=== PATIENT | female | born 1990 | race Hispanic/Latino ===

== ENCOUNTER 2018-11-19 15:19 | Emergency (ER) | payer OTHER ==
[~2018-11-19] VITALS: Ht 157.5 cm; Wt 68.0 kg
--- OUTSIDE RECORDS SUMMARY | 2018-11-19 15:21 | XMS REPORT ---
Author Author [facility] Address Unknown Phone Unavailable Care Team Providers Care Corporate Legal Intern Name Role Phone NATHALIA MEEK Unavailable Unavailable Problems This patient has no known problems. Allergies, Adverse Reactions, Alerts This patient has no known allergies or adverse reactions. Medications This patient has no known medications. Results Test Description Test Time Test Comments Text Results Atomic Results Result Comments COMPREHENSIVE METABOLIC PANEL 2017-01-03 21:15:00 TOTAL PROTEIN (BEAKER) (test rlco=416) 8.1 gm/dL 6.0-8.5 ALBUMIN (BEAKER) (test lypj=1788) 4.5 g/dL 3.5-5.0 ALKALINE PHOSPHATASE (BEAKER) (test wvmu=294) 84 U/L 30-115 BILIRUBIN TOTAL (BEAKER) (test siqh=555) 0.2 mg/dL 0.1-1.2 SODIUM (BEAKER) (test ukck=382) 142 meq/L 135-148 POTASSIUM (BEAKER) (test dvsj=306) 4.1 meq/L 3.6-5.5 CHLORIDE (BEAKER) (test qzum=878) 102 meq/L 98-106 CO2 (BEAKER) (test ttki=759) 25 meq/L 24-32 BLOOD UREA NITROGEN (BEAKER) (test mwuw=924) 14 mg/dL 10-26 CREATININE (BEAKER) (test ardd=133) 0.58 mg/dL 0.50-1.20 GLUCOSE RANDOM (BEAKER) (test khoe=217) 91 mg/dL 70-110 CALCIUM (BEAKER) (test rkam=866) 8.8 mg/dL 8.5-10.5 AST (SGOT) (BEAKER) (test jnby=209) 23 U/L 5-40 ALT (SGPT) (BEAKER) (test zehg=249) 17 U/L 5-50 EGFR (BEAKER) (test bhwq=8810) 128 mL/min/1.73 sq m ESTIMATED GFR IS NOT ACCURATE CREATININE CLEARANCE IN PREDICTING GLOMERULAR FILTRATION RATE. ESTIMATED GFR IS NOT APPLICABLE FOR DIALYSIS PATIENTS. [id number] 21:15:00* Test Item Value Reference Range Comments LIPASE (BEAKER) (test gmlk=393) 168 U/L 40-240 CBC W/PLT COUNT & AUTO [id number] 21:08:00* Test Item Value Reference Range Comments WHITE BLOOD CELL COUNT (BEAKER) (test iiyc=340) 12.8 10e3/ L 4.0-10.0 RED BLOOD CELL COUNT (BEAKER) (test ltig=061) 4.68 10e6/ L 4.00-5.00 HEMOGLOBIN (BEAKER) (test rkjc=462) 14.0 g/dL 12.0-15.0 HEMATOCRIT (BEAKER) (test pege=192) 41.9 % 36.0-45.0 MEAN CORPUSCULAR VOLUME (BEAKER) (test dfmp=299) 89.6 fL 82.0-99.0 MEAN CORPUSCULAR HEMOGLOBIN (BEAKER) (test umbb=604) 29.9 pg 27.0-33.0 MEAN CORPUSCULAR HEMOGLOBIN CONC (BEAKER) (test fhql=931) 33.3 g/dL 32.0-36.0 RED CELL DISTRIBUTION WIDTH (BEAKER) (test djhd=907) 11.9 % 10.3-14.2 PLATELET COUNT (BEAKER) (test jwkx=382) 395 10e3/ L 150-430 MEAN PLATELET VOLUME (BEAKER) (test zsrf=728) 6.9 fL 6.5-10.5 NEUTROPHILS RELATIVE PERCENT (BEAKER) (test stud=733) 58 % LYMPHOCYTES RELATIVE PERCENT (BEAKER) (test airh=255) 31 % MONOCYTES RELATIVE PERCENT (BEAKER) (test voqk=191) 8 % EOSINOPHILS RELATIVE PERCENT (BEAKER) (test pdpt=895) 2 % BASOPHILS RELATIVE PERCENT (BEAKER) (test eqrf=926) 1 % NEUTROPHILS ABSOLUTE COUNT (BEAKER) (test wkfs=559) 7.36 10e3/ L 1.80-8.00 LYMPHOCYTES ABSOLUTE COUNT (BEAKER) (test nxsn=035) 3.99 10e3/ L 1.48-4.50 MONOCYTES ABSOLUTE COUNT (BEAKER) (test dvei=958) 1.06 10e3/ L 0.00-1.30 EOSINOPHILS ABSOLUTE COUNT (BEAKER) (test maay=036) 0.23 10e3/ L 0.00-0.50 BASOPHILS ABSOLUTE COUNT (BEAKER) (test mqnt=356) 0.11 10e3/ L 0.00-0.20 URINALYSIS W/ [id number] 20:52:00* Test Item Value Reference Range Comments COLOR (BEAKER) (test anwn=988) Yellow CLARITY (BEAKER) (test wajm=363) Clear SPECIFIC GRAVITY UA (BEAKER) (test bitg=100) 1.025 1.001-1.035 PH UA (BEAKER) (test tzud=837) 5.5 5.0-8.0 PROTEIN UA (BEAKER) (test ywov=743) Negative Negative GLUCOSE UA (BEAKER) (test npnz=748) Negative Negative KETONES UA (BEAKER) (test ohoa=985) Negative Negative BILIRUBIN UA (BEAKER) (test hnlp=787) Negative Negative BLOOD UA (BEAKER) (test pdll=643) Moderate Negative NITRITE UA (BEAKER) (test evvq=171) Negative Negative LEUKOCYTE ESTERASE UA (BEAKER) (test smsi=113) Negative Negative UROBILINOGEN UA (BEAKER) (test paou=919) 0.2 mg/dL 0.2-1.0 BACTERIA (BEAKER) (test xhor=588) Many MUCUS (BEAKER) (test wkti=6582) Moderate RBC UA-MANUAL (BEAKER) (test grfl=8341) 10-20 /HPF WBC UA-MANUAL (BEAKER) (test mprt=4666) <5 /HPF SQUAMOUS EPITHELIAL MANUAL (BEAKER) (test gdam=2473) 5-10 /HPF SOURCE(BEAKER) (test glqx=8930) SCREEN, [id number] 20:49:00* Test Item Value Reference Range Comments TEST URINE (BEAKER) (test hxnm=884) Negative
--- OUTSIDE RECORDS SUMMARY | 2018-11-19 15:21 | XMS REPORT | Clinical Summary ---
Author Author [facility] Address Unknown Phone Unavailable Care Team Providers Care Calibration Laboratory Technician Name Role Phone Sharpless PCP Allergies Comments Active Allergy Reactions Severity Noted Date DIARRHEA [place] Other (See 05/29/2016 Comments) Medications End Date Status Medication Sig Dispensed Refills Start Date Active fexofenadine-pseudoephedr 1 tablet. 0 ine (JOVANA-D 24 HOUR) 6 180-240 mg per 24 hr tablet Active topiramate (TOPAMAX) 50 TAKE 1 TABLET 0 MG tablet BY MOUTH 2 7 TIMES DAILY. 01/03/2018 naproxen (EC NAPROSYN) Take 1 tablet 20 tablet 0 500 MG EC tablet (500 mg 7 total) by mouth 2 (two) times daily with breakfast and dinner. Active Problems Problem Noted Date Migraine 09/26/2015 Right sided weakness 09/25/2015 Headache 09/25/2015 Family History Medical History Relation Name Comments Unremarkable Father Unremarkable Mother Relation Name Status Comments Father Mother Social History Date Tobacco Use Types Packs/Day Years Used Never Smoker Alcohol Use Drinks/Week oz/Week Comments No Sex Assigned at Date Recorded Not on file Industry Job Start Date Occupation Not on file Not on file Not on file Travel End Travel History Travel Start No recent travel history available. Last Filed Vital Signs Not on file Plan of Treatment Not on file Results Not on fileafter 11/18/2017 Insurance Payer Benefit Subscriber ID Type Phone Address Plan / Group CIG[employer] - MGD CARE CIGNA xxxxxxxxxxx HMO/POS HMO/POS/OP EN ACCESS Advance Directives For more information, please contact: [facility] [address] [place] [address] Date Inactivated Comments Code Status Date Activated 09/27/2015 4:35 PM Full Code 09/26/2015 8:05 PM This code status was determined by: Patient
[2018-11-19] MEDS ORDERED: FAMOTIDINE 20 MG/2 ML VIAL IV ONE (16:18)
[2018-11-19] MEDS ORDERED: SODIUM CHLORIDE 0.9% 1000ML 1,000 ML IV SCH (16:30)
[2018-11-19] MEDS ORDERED: DONNATAL/LIDOCAINE/MAALOX 30 ML SUSP PO ONE (16:30)
[2018-11-19 18:58] VITALS: BP 137/69
== END 2018-11-19 19:01 | disposition home or self-care (01) ==
LOC: FSED 15:19
DX: R10.13 Epigastric pain (principal); R11.2 Nausea with vomiting, unspecified; K29.00 Acute gastritis without bleeding; K21.9 Gastro-esophageal reflux disease without esophagitis
CPT/HCPCS: 80048; 80076; 81003; 81025; 85025; 99284

== ENCOUNTER 2018-12-14 19:47 | Emergency (ER) | payer OTHER ==
[~2018-12-14] VITALS: Ht 157.5 cm; Wt 68.0 kg
--- OUTSIDE RECORDS SUMMARY | 2018-12-14 19:49 | XMS REPORT | Clinical Summary ---
Author Author [facility] Address Unknown Phone Unavailable Care Team Providers Care Binder And Box Builder Name Role Phone Sharpless PCP Allergies Comments Active Allergy Reactions Severity Noted Date DIARRHEA [place] Other (See 05/29/2016 Comments) Medications End Date [...] Not on file Results Not on fileafter 12/13/2017 Insurance Payer Benefit Subscriber ID Type Phone Address Plan / Group C[employer] - [place]GD CARE CIGNA xxxxxxxxxxx HMO/POS HMO/POS/OP EN ACCESS Advance Directives For more information, please contact: [facility] [address] [place] [address] Date Inactivated Comments Code Status Date Activated 09/27/2015 4:35 PM Full Code 09/26/2015 8:05 PM This code status was determined by: Patient
[2018-12-14] MEDS ORDERED: MORPHINE SULFATE 5 MG/ML VIAL IV ONE ×2 (20:45→21:45)
[2018-12-14] MEDS ORDERED: ONDANSETRON HCL INJ 2MG/ML 2ML 2 MG/ML VIAL IV STA (20:45)
[2018-12-14 21:37] VITALS: BP 110/71
== END 2018-12-14 21:48 | disposition home or self-care (01) ==
LOC: FSED 19:47
DX: G43.019 Migraine without aura, intractable, without status migrainosus (principal); R11.0 Nausea
CPT/HCPCS: 81025; 99283; J2270; J2405

== ENCOUNTER 2019-02-25 06:09 | Emergency (ER) | payer OTHER ==
[~2019-02-25] VITALS: Ht 157.5 cm; Wt 68.0 kg
--- OUTSIDE RECORDS SUMMARY | 2019-02-25 06:11 | XMS REPORT | Clinical Summary ---
Author Author [facility] Address Unknown Phone Unavailable Care Team Providers Care Toxicology Teacher Name Role Phone Sharpless PCP Allergies Comments Active Allergy Reactions Severity Noted Date DIARRHEA [place] Other (See 05/29/2016 Comments) Medications End Date Status Medication Sig Dispensed Refills Start Date Active fexofenadine-pseudoephedr 1 tablet. 0 ine (JOVANA-D 24 HOUR) 6 180-240 mg per 24 hr tablet Active topiramate (TOPAMAX) 50 TAKE 1 TABLET 0 MG tablet BY MOUTH 2 7 TIMES DAILY. Active Problems Problem Noted Date Migraine 09/26/2015 [...] Not on file Results Not on fileafter 02/24/2018 Insurance Payer Benefit Subscriber ID Type Phone Address Plan / Group C[employer] - [place]GD CARE CIGNA xxxxxxxxxxx HMO/POS HMO/POS/OP EN ACCESS Advance Directives For more information, please contact: [place] [id number] [facility] [place] [address] Date Inactivated Comments Code Status Date Activated 09/27/2015 4:35 PM Full Code 09/26/2015 8:05 PM This code status was determined by: Patient
[2019-02-25] MEDS ORDERED: SODIUM CHLORIDE 0.9% 50ML 50 ML IV ONE (08:45)
[2019-02-25] MEDS ORDERED: TETRACAINE HCL 0.5% OPTH SOLN 4 ML BTL OP ONE (08:45)
== END 2019-02-25 07:00 | disposition home or self-care (01) ==
LOC: FSED 06:09
DX: T15.11XA Foreign body in conjunctival sac, right eye, initial encounter (principal)
CPT/HCPCS: 99284

== ENCOUNTER 2020-07-07 16:44 | Emergency (ER) | payer SELFPAY ==
[~2020-07-07] VITALS: Ht 160 cm; Wt 77.1 kg
[2020-07-07] MEDS ORDERED: ONDANSETRON HCL INJ 2MG/ML 2ML 2 MG/ML VIAL IV STA (17:08)
[2020-07-07] MEDS ORDERED: ONDANSETRON HCL INJ 2MG/ML 2ML 2 MG/ML VIAL ONE (17:30)
--- NOTE | 2020-07-07 17:43 | Emergency Department Note ---
History of Present Illnes History of Present Illness Chief Complaint: General Medicine Complaints History of Present Illness This is a 30 year old female Chief Complaint Comment HEADACHE FOR 6 DAYS, ALSO HAS NAUSEA AND VOMITING FOR 3 DAYS. NAD NOTED. PT AMBULATORY TO TRIAGE, URINE OBTAINED . Historian: Patient Arrival Mode: Car Onset (how long ago): day(s) (2) Location: vomiting Quality: dull headache Radiation: Denies non-radiation, Denies back, Denies neck, Denies extremity, Denies abdomen, Denies periumbilical, Denies flank, Denies proximal, Denies distal, Denies other Severity: moderate Onset quality: gradual Duration (how long): day(s) (2) Timing of current episode: intermittent Progression: waxing and waning Chronicity: new Context: Denies recent illness, Denies recent surgery, Denies recent immobilization, Denies recent travel, Denies trauma/injury, Denies new medications, Denies hx of DVT/PE, Denies non-compliance w/ medications, Denies other Relieving factors: none Exacerbating factors: none Associated symptoms: Reports denies other symptoms Treatments prior to arrival: none Past Medical/Family History Physician Review I have reviewed the patient's past medical and family history. Any updates have been documented here. Past Medical History Recent Fever: No Clinical Suspicion of Infectio: No New/Unexplained Change in Ment: No Past Medical History: Migraines, GERD Past Surgical History: None Social History Smoking Cessation: Current every day smoker Counseling Performed: No Alcohol Use: None Any Illegal Drug Use: No Other Last Tetanus: UTD Any Pre-Existing Lines (PICC,: No Review of Systems Review of Systems Constitutional: Reports no symptoms EENTM: Reports no symptoms Cardiovascular: Reports no symptoms Respiratory: Reports no symptoms Gastrointestinal: Reports no symptoms Genitourinary: Reports no symptoms Musculoskeletal: Reports no symptoms Integumentary: Reports no symptoms Neurological: Reports no symptoms Psychological: Reports no symptoms Endocrine: Reports no symptoms Hematological/Lymphatic: Reports no symptoms Physical Exam Related Data Allergies: Coded Allergies: No Known Allergies (Unverified , 03/01/14) Triage Vital Signs Vital Signs Date Time Temp Pulse Resp B/P (MAP) Pulse Ox O2 Delivery O2 Flow Rate FiO2 07/07/20 17:07 98.3 92 18 120/70 98 Vital signs reviewed: Yes Physical Exam CONSTITUTIONAL Constitutional: Present well-developed, Present well-nourished HENT HENT: Present normocephalic, Present atraumatic, Present oropharynx clear/moist, Present nose normal HENT L/R: Present left ext ear normal, Present right ext ear normal EYES Eyes: Reports PERRL, Reports conjunctivae normal NECK Neck: Present ROM normal PULMONARY Pulmonary: Present effort normal, Present breath sounds normal CARDIOVASCULAR Cardiovascular: Present regular rhythm, Present heart sounds normal, Present capillary refill normal, Present normal rate GASTROINTESTINAL Abdominal: Present soft, Present nontender, Present bowel sounds normal GENITOURINARY Genitourinary: Present exam deferred SKIN Skin: Present warm, Present dry MUSCULOSKELETAL Musculoskeletal: Present ROM normal NEUROLOGICAL Neurological: Present alert, Present oriented x 3, Present no gross motor or sensory deficits PSYCHOLOGICAL Psychological: Present mood/affect normal, Present judgement normal Results Laboratory Lab results reviewed: Yes Procedures 12 Lead ECG Interpretation ECG Interpretation : ECG: ECG 1 Health Education Director: Interpreted by ED physician Date: Jul 07, 2020 Time: 16:58 Rhythm: sinus rhythm Rate: normal BPM: 91 QRS axis: normal ST segments normal: Yes T waves normal: Yes Assessment & Plan Medical Decision Making MDM migrain,,,gastritis Reassessment Reassessment better Assessment & Plan Final Impression: (1) Headache (2) Vomiting (3) Migraine Last Vital Signs Date Time Temp Pulse Resp B/P (MAP) Pulse Ox O2 Delivery O2 Flow Rate FiO2 07/07/20 17:07 98.3 92 18 120/70 98 Home Meds No Active Prescriptions or Reported Meds Medications in the ED Ondansetron HCl 4 mg NOW STAT IV Last administered on 07/07/20at 17:25; Admin Dose 4 MG; Start 07/07/20 at 17:08; Stop 07/07/20 at 17:26; Status DC Ondansetron HCl 4 mg STK-MED ONCE .ROUTE ; Start 07/07/20 at 17:30; Stop 07/07/20 at 17:26; Status DC TEE MAR MD Jul 07, 2020 17:43
--- OUTSIDE RECORDS SUMMARY | 2020-07-07 17:44 | XMS REPORT | Continuity of Care Document ---
Author Author [facility] t Organization [facility] t Address [address] [place] [address] Phone Unavailable Care Team Providers Care Finished Cloth Examiner Name Role Phone NO, PCP PCP Unavailable NATHALIA MEEK Attangel Unavailable Payers Payer Name Policy Type Policy Number Effective Date Expiration Date Jayda Vivarsey Care [id number] [facility] [id number] [facility] Ppo [id number] [facility] Problems Condition Name Condition Details Condition Category Status Onset Date Resolution Date Last Treatment Date Treating Clinician Comments Source Migraine Migraine Disease Active 2015-09-26 00:00:00 [facility] Right sided weakness Right sided weakness Disease Active 00:00:00 [facility] Headache Headache Disease Active 2015-09-25 00:00:00 [facility] Allergies, Adverse Reactions, Alerts Allergy Name Allergy Type Status Severity Reaction(s) Onset Date Inacti ve Date Treating Clinician Comments Source [place] Propensity to adverse reactions Active Othe r (See Comments) 2016-05-29 00:00:00 DIARRHEA [facility] Family History Family Member Diagnosis Comments Start Date Stop Date Source Natural father Unremarkable [facility] Natural mother Unremarkable [facility] Social History Social Habit Start Date Stop Date Quantity Comments Source Sex Assigned At [facility] Smoking Status Start Date Stop Date Source Never smoker [facility] Medications Ordered Medication Name Filled Medication Name Start Date Stop Da te Current Medication? Ordering Clinician Indication Dosage Frequency Signature (SIG) Comments Components Source topiramate (TOPAMAX) 50 MG tablet 2016-11-25 00:00:00 Yes TAKE 1 TABLET BY MOUTH 2 TIMES DAILY. [facility] fexofenadine-pseudoephedrine (JOVANA-D 24 HOUR) 180-240 mg per 24 hr tablet 2016-10-06 00:00:00 Yes 1{tbl} 1 tablet. [facility] Procedures This patient has no known procedures. Encounters Start Date/Time End Date/Time [facility] Source 2019-02-25 06:09:00 2019-02-25 07:00:00 Departed Emergency Room [facility] [id number] [facility] 2018-12-14 19:47:00 2018-12-14 21:48:00 Departed Emergency Room [facility] [id number] [facility] 2018-11-19 15:19:00 2018-11-19 19:01:00 Departed Emergency Room [facility] [id number] [facility] Results Test Description Test Time Test Comments Results Result Comments Source COMPREHENSIVE METABOLIC PANEL 2017-01-03 21:15:00 Test Item TOTAL PROTEIN (BEAKER) (test code = 770) 8.1 gm/dL 6.0-8.5 ALBUMIN (BEAKER) (test code = 1145) 4.5 g/dL 3.5-5.0 ALKALINE PHOSPHATASE (BEAKER) (test code = 346) 84 U/L 30-115 BILIRUBIN TOTAL (BEAKER) (test code = 377) 0.2 mg/dL 0.1-1.2 SODIUM (BEAKER) (test code = 381) 142 meq/L 135-148 POTASSIUM (BEAKER) (test code = 379) 4.1 meq/L 3.6-5.5 CHLORIDE (BEAKER) (test code = 382) 102 meq/L 98-106 CO2 (BEAKER) (test code = 355) 25 meq/L 24-32 BLOOD UREA NITROGEN (BEAKER) (test code = 354) 14 mg/dL 10-26 CREATININE (BEAKER) (test code = 358) 0.58 mg/dL 0.50-1.20 GLUCOSE RANDOM (BEAKER) (test code = 652) 91 mg/dL 70-110 CALCIUM (BEAKER) (test code = 697) 8.8 mg/dL 8.5-10.5 AST (SGOT) (BEAKER) (test code = 353) 23 U/L 5-40 ALT (SGPT) (BEAKER) (test code = 347) 17 U/L 5-50 EGFR (BEAKER) (test code = 1092) 128 mL/min/1.73 sq m ESTIMATED GFR IS NOT ACCURATE CREATININE CLEARANCE IN PREDICTING GLOMERULAR FILTRATION RATE. ESTIMATED GFR IS NOT APPLICABLE FOR DIALYSIS PATIENTS. [id number] 21:15:00* Test Item Value Reference Range Interpretation Comments LIPASE (BEAKER) (test code = 749) 168 U/L 40-240 CBC W/PLT COUNT & AUTO [id number] 21:08:00* Test Item Value Reference Range Interpretation Comments WHITE BLOOD CELL COUNT (BEAKER) (test code = 775) 12.8 10e3/ L 4.0- 10.0 H RED BLOOD CELL COUNT (BEAKER) (test code = 761) 4.68 10e6/ L 4.00-5 .00 HEMOGLOBIN (BEAKER) (test code = 410) 14.0 g/dL 12.0-15.0 HEMATOCRIT (BEAKER) (test code = 411) 41.9 % 36.0-45.0 MEAN CORPUSCULAR VOLUME (BEAKER) (test code = 753) 89.6 fL 82. 0-99.0 MEAN CORPUSCULAR HEMOGLOBIN (BEAKER) (test code = 751) 29.9 pg 27.0-33.0 MEAN CORPUSCULAR HEMOGLOBIN CONC (BEAKER) (test code = 752) 33.3 g/dL 32.0-36.0 RED CELL DISTRIBUTION WIDTH (BEAKER) (test code = 412) 11.9 % 10.3-14.2 PLATELET COUNT (BEAKER) (test code = 756) 395 10e3/ L 150-430 MEAN PLATELET VOLUME (BEAKER) (test code = 754) 6.9 fL 6.5-10 .5 NEUTROPHILS RELATIVE PERCENT (BEAKER) (test code = 429) 58 % LYMPHOCYTES RELATIVE PERCENT (BEAKER) (test code = 430) 31 % MONOCYTES RELATIVE PERCENT (BEAKER) (test code = 431) 8 % EOSINOPHILS RELATIVE PERCENT (BEAKER) (test code = 432) 2 % BASOPHILS RELATIVE PERCENT (BEAKER) (test code = 437) 1 % NEUTROPHILS ABSOLUTE COUNT (BEAKER) (test code = 670) 7.36 10e3/ L 1.80-8.00 LYMPHOCYTES ABSOLUTE COUNT (BEAKER) (test code = 414) 3.99 10e3/ L 1.48-4.50 MONOCYTES ABSOLUTE COUNT (BEAKER) (test code = 415) 1.06 10e3/ L 0. 00-1.30 EOSINOPHILS ABSOLUTE COUNT (BEAKER) (test code = 416) 0.23 10e3/ L 0.00-0.50 BASOPHILS ABSOLUTE COUNT (BEAKER) (test code = 417) 0.11 10e3/ L 0. 00-0.20 URINALYSIS W/ [id number] 20:52:00* Test Item Value Reference Range Interpretation Comments COLOR (BEAKER) (test code = 470) Yellow CLARITY (BEAKER) (test code = 469) Clear SPECIFIC GRAVITY UA (BEAKER) (test code = 468) 1.025 1.001-1 .035 PH UA (BEAKER) (test code = 467) 5.5 5.0-8.0 PROTEIN UA (BEAKER) (test code = 464) Negative Negative GLUCOSE UA (BEAKER) (test code = 365) Negative Negative KETONES UA (BEAKER) (test code = 371) Negative Negative BILIRUBIN UA (BEAKER) (test code = 462) Negative Negative BLOOD UA (BEAKER) (test code = 461) Moderate Negative A NITRITE UA (BEAKER) (test code = 465) Negative Negative LEUKOCYTE ESTERASE UA (BEAKER) (test code = 466) Negative Negat roxi UROBILINOGEN UA (BEAKER) (test code = 463) 0.2 mg/dL 0.2-1.0 BACTERIA (BEAKER) (test code = 517) Many MUCUS (BEAKER) (test code = 1574) Moderate RBC UA-MANUAL (BEAKER) (test code = 1659) 10-20 /HPF WBC UA-MANUAL (BEAKER) (test code = 1661) <5 /HPF SQUAMOUS EPITHELIAL MANUAL (BEAKER) (test code = 1663) 5-10 /HPF SOURCE(BEAKER) (test code = 2795) SCREEN, [id number] 20:49:00* Test Item Value Reference Range Interpretation Comments TEST URINE (BEAKER) (test code = 583) Negative
--- OUTSIDE RECORDS SUMMARY | 2020-07-07 17:44 | XMS REPORT | Clinical Summary ---
Author Author [facility] Address Unknown Phone Unavailable Care Team Providers Care County Superintendent Of Schools Name Role Phone Sharpless PCP Allergies Comments Active Allergy Reactions Severity Noted Date DIARRHEA [place] Other (See 05/29/2016 Comments) Medications End Date Status Medication Sig Dispensed Refills Start Date Active fexofenadine-pseudoephedr 1 tablet. 0 09/09 ine (JOVANA-D 24 HOUR) 6 180-240 mg [...] Not on file Results Not on fileafter 07/07/2019 Insurance Payer Benefit Subscriber ID Type Phone Address Plan / Group [employer] - MGD CARE [employer]IG[employer] xxxxxxxxxxx HMO/POS HMO/POS/OP EN ACCESS Advance Directives For more information, please contact: [facility] [address] [place], [place] [id number] Date Inactivated Comments Code Status Date Activated 09/27/2015 4:35 PM Full Code 09/26/2015 8:05 PM This code status was determined by: Patient
== END 2020-07-07 17:58 | disposition home or self-care (01) ==
LOC: FSED 17:15
DX: G43.909 Migraine, unspecified, not intractable, without status migrainosus (principal); K21.9 Gastro-esophageal reflux disease without esophagitis; F17.210 Nicotine dependence, cigarettes, uncomplicated
CPT/HCPCS: 80048; 80076; 81025; 85025; 93005; 99283; J2405

== ENCOUNTER 2020-11-18 02:26 | Emergency (ER) | payer SELFPAY ==
[~2020-11-18] VITALS: Ht 160 cm; Wt 72.6 kg
== END 2020-11-18 04:25 | disposition home or self-care (01) ==
LOC: FSED 03:00
DX: R00.2 Palpitations (principal); R07.89 Other chest pain; R06.02 Shortness of breath; K21.9 Gastro-esophageal reflux disease without esophagitis
CPT/HCPCS: 71046; 80048; 82553; 84484; 85025; 85379; 93005; 99283